=== PATIENT | male | born 1965 | race Caucasian/White ===

== ENCOUNTER → 2020-12-14 08:18 | Outpatient (CLI) | payer MEDICARE, SELFPAY ==
--- NOTE | ~2020-12-14 | MR_ITS ---
EXAMINATION: MR lumbar spine wo/w con DATE: 12/14/2020 09:11 INDICATION: Lumbosacral radiculopathy with low back pain and bilateral leg tingling and numbness. TECHNIQUE: Magnetic resonance imaging (MRI) of the lumbar spine was performed without intravenous con trast. Sequences included sagittal T2-weighted FSE, sagittal T2-weighted FS FSE, sagittal T1-weighted FSE, and axial T2-weighted FSE. COMPARISON: 07/02/2019 FINDINGS: L4 laminectomy and instrumented anterior and posterior spinal fusion at L4-L5 with interbody fusion d evice and bilateral vertical carol ann and pedicle screw fixation. Alignment is normal. Vertebral body heig hts are normal. T1 hyperintense hemangioma at T12. Again seen is mild marrow edema and associated mil d marrow enhancement surrounding a small Schmorl's node along the anteroinferior endplate of L3. Althea ow signal is otherwise normal. Disc heights are normal. The conus medullaris terminates at T12. There is normal signal in the caudal spinal cord. No abnormally enhancing lesions aside from the previousl y mentioned enhancement in edema surrounding L3 Schmorl's node. The following disc levels are specifi guy discussed: T12-L1: The disc does not extend beyond the endplate margin. There is minimal bilateral facet joint o steoarthritis. There is no neural foraminal stenosis. There is no central canal stenosis. L1-L2: The disc does not extend beyond the endplate margin. There is minimal bilateral facet joint os teoarthritis. There is no neural foraminal stenosis. There is no central canal stenosis. L2-L3: Disc is mildly bulging. There is mild right and minimal left facet joint osteoarthritis. There is mild bilateral neural foraminal stenosis. There is no central canal stenosis. L3-L4: Disc is bulging. There is mild bilateral facet joint osteoarthritis. There is moderate bilater al neural foraminal stenosis. There is mild central canal stenosis. L4-L5: Combined instrumented anterior and posterior spinal fusion with magnetic field artifact in the vertical rods and pedicle screws somewhat distorting the signal in the region of the neural foramina which appear patent bilaterally with no significant stenosis. There is no central canal stenosis. L5-S1: Disc is minimally bulging with annular fissure. There is severe bilateral facet joint osteoart hritis. There is mild bilateral neural foraminal stenosis. There is mild central canal stenosis. IMPRESSION: 1. Likely reactive mild marrow edema and enhancement surrounding a small Schmorl's node along the ant erior inferior endplate of L3. 2. Stable appearance of lower lumbar postoperative changes including L4 laminectomy and combined inst rumented anterior and posterior spinal fusion at L4-L5. 3. No significant interval change in mild lumbar spondylosis. Reviewed, dictated and finalized at location A. IMPRESSION: 1. Likely reactive mild marrow edema and enhancement surrounding a small Schmor l's node along the anterior inferior endplate of L3. 2. Stable appearance of lower lumbar postoperative changes including L4 laminec mary ann and combined instrumented anterior and posterior spinal fusion at L4-L5. 3. No significant interval change in mild lumbar spondylosis.
[2020-12-14 08:45] LABS: Estimated Glomerular Filt Rate > 60
== END ==
PROVIDERS: Visit Provider Chiropractor
DX: M47.815 Spondylosis without myelopathy or radiculopathy, thoracolumbar region (principal); M48.05 Spinal stenosis, thoracolumbar region; M51.46 Schmorl's nodes, lumbar region; Z98.1 Arthrodesis status; M47.27 Other spondylosis with radiculopathy, lumbosacral region; M48.07 Spinal stenosis, lumbosacral region
CPT/HCPCS: 72158; A9577

== ENCOUNTER → 2021-01-18 08:03 | Outpatient (CLI) | payer MEDICARE, SELFPAY ==
--- NOTE | ~2021-01-18 | CT_ITS ---
EXAMINATION: CT abdomen pelvis wo/w con EXAM DATE: 01/18/2021 08:38 INDICATION: Right-sided varicocele. Abnormal ultrasound. TECHNIQUE: Spiral CT of the abdomen and pelvis was performed through the scrotum without and then wit h intravenous injection of 100 mL Omnipaque 350. Axial, coronal and sagittal images of the abdomen and pelvis were reviewed. The dose-length product (DLP) for this examination was 1307.55 mGy-cm. Th e exposure was tailored according to patient size (auto mA exposure control), and iterative reconstru ction (ASIR) was used as additional dose reduction technique. There is no prior study for comparison . 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 Gonadal veins have normal course and appearance. No retroperitoneal mass or lymphadenopathy. The liver, spleen, adrenal glands and pancreas are unremarkable. Gallbladder is unremarkable. No bi liary obstruction. Portal and splenic veins are patent. Kidneys enhance symmetrically. There is no hydronephrosis. No nephrolithiasis on the precontrast scan. The prostate is unremarkable. The blad augusta is unremarkable. There are no findings to suggest appendicitis. The stomach and small bowel are unremarkable. There is moderate amount of colonic stool. No free intraperitoneal gas. The heart is normal in size. T here are no pericardial or pleural effusions. The lung bases are unremarkable. The bones are unrema rkable. Lower lumbar fusion L5-S1. IMPRESSION: 1. Unremarkable CT abdomen pelvis exam. Reviewed, dictated and finalized at location B.
[2021-01-18 08:25] LABS: Estimated Glomerular Filt Rate > 60
== END ==
DX: I86.1 Scrotal varices (principal)
CPT/HCPCS: 74178; Q9967